=== PATIENT | female | born 2000 | race Caucasian/White ===

== ENCOUNTER 2020-08-14 18:59 | Emergency (ER) | payer OTHER, SELFPAY ==
--- NOTE | 2020-08-14 19:01 | ED_ITS ---
HPI - Female Genitourinary General Chief complaint: Urogenital-Female Stated complaint: Vaginal Bleeding Time Seen by Provider: 08/14/20 19:01 Source: patient Mode of arrival: Ambulatory Limitations: no limitations History of Present Illness HPI Narrative: 19-year-old female former smoker without significant medical history presents with a friend in the chief complaint of some painless vaginal spotting over the course of the afternoon. Her last normal period was July 05. She has taken at home tests which have been positive and she thinks she is about 6 weeks at this time. She is a and has yet to establish with an roll sheeting cutter. She is not dizzy nor weak or lightheaded. She denies any urinary complaints such as dysuria, frequency or urgency. She states the bleeding was bright red, minimal and noticed when wiping. Again, she denies any pain whatsoever. She has had no fever chills and she denies other symptoms. MD Complaint: vaginal bleeding Onset (ago): hour(s) Severity: mild Relieving factors: none Exacerbating factors: none Vaginal discharge: blood Patient : Yes Associated symptoms: denies other symptoms Related Data Allergies Allergy/AdvReac Type Severity Reaction Status Date / Time No Known Drug Allergies Allergy Verified 08/14/20 19:54 Review of Systems Constitutional Constitutional: Denies chills, Denies fatigue, Denies fever(s), Denies frequent falls, Denies lethargy and Denies weakness Eyes Eyes: Denies change in vision, Denies eye discharge, Denies irritation and Denies loss of vision ENT Ears, Nose, Mouth, and Throat: Denies change in voice, Denies dizziness, Denies neck pain, Denies sore throat and Denies throat swelling Cardiovascular Cardiovascular: Denies chest pain, Denies irregular heart rhythm, Denies lighthe adedness, Denies palpitations, Denies dyspnea, Denies dyspnea on exertion and Denies orthopnea Respiratory Respiratory: Denies cough, Denies dyspnea, Denies dyspnea on exertion and Denies wheezing Gastrointestinal Gastrointestinal: Denies abdominal pain, Denies change in bowel habits, Denies diarrhea, Denies nausea and Denies vomiting Genitourinary Genitourinary: Reports abnormal vaginal bleeding Musculoskeletal Musculoskeletal: Denies neck pain and Denies numbness Integumentary/Breasts Skin/Breast: Denies pruritus, Denies erythema, Denies rash and Denies wounds Neurologic Neurologic: Denies behavioral changes, Denies confusion, Denies dizziness, Denies frequent falls, Denies loss of vision, Denies numbness and Denies weakness Psychiatric Psychiatric: Denies anxiety, Denies behavioral changes, Denies confusion, Denies depression, Denies homicidal ideation and Denies suicidal ideation Endocrine Endocrine: Denies fatigue, Denies flushing and Denies palpitations Hematologic/Lymphatic Hematologic/Lymphatic: Denies easy bruising Allergic/Immunologic Allergic/Immunologic: Denies urticaria, Denies throat swelling and Denies wheezing Patient History housing: house Smoking Status: Former smoker alcohol intake frequency: 0-2 drinks per day Substance Use Type: does not use Exam Narrative Exam Narrative: GENERAL: 19[] year old patient appears stated age. Well- nourished, well-developed patient, in mild distress. HEAD: Atraumatic. Normocephalic. EYES: Pupils equal round and reactive. Extraocular motions intact. No scleral icterus. No injection or drainage. ENT: Nose without bleeding, purulent drainage. Throat without erythema, tonsillar hypertrophy or exudate. Airway patent. NECK: Trachea midline. Non tender CARDIOVASCULAR: Regular rate and rhythm without murmurs, gallops, or rubs. RESPIRATORY: Clear to auscultation. Breath sounds equal bilaterally. No wheezes, rales, or rhonchi. GASTROINTESTINAL: Abdomen soft, non-tender, nondistended. EXTREMITIES: No edema or joint tenderness. BACK: Nontender without deformity or crepitance. No flank tenderness. NEURO: AOx3. SKIN: No rash or erythema of visible areas Initial Vital Signs Initial Vital Signs: Vital Signs Temperature 99 F 08/14/20 19:14 Pulse Rate 100 H 08/14/20 19:14 Respiratory Rate 16 08/14/20 19:14 Blood Pressure 143/87 H 08/14/20 19:14 Pulse Oximetry 98 08/14/20 19:14 Course Orders Ordered: ED Orders 08/14/20 19:25 Basic Metabolic Panel Stat Complete Blood Count AUTO DIFF Stat HCG Quantitative /Beta subunit Stat 08/14/20 20:00 Urine Culture Stat Urine Microscopic Stat Reevaluation(s) Reevaluation #1: minimal change after reglan 1940 - nausea significantly improved 10 minutes after Haldol, still in pain. Vital Signs Vital signs: Vital Signs - 8 hr 08/14/20 19:14 08/14/20 20:23 Temperature 99 F Pulse Rate 100 H 84 Respiratory Rate 16 15 Blood Pressure 143/87 H 120/60 Pulse Oximetry 98 97 MDM - Female Genitourinary Lab Data Result diagrams: 08/14/20 19:25 08/14/20 19:25 Labs: Lab Results 08/14/20 08/14/20 08/14/20 Range/Units 19:25 19:25 20:00 WBC 9.2 (4.5-11.0) X10^3/uL RBC 4.55 (4.0-5.2) X10^6/uL Hgb 13.3 (12.0-16.0) g/dL Hct 39.8 (36-46) % MCV 87.5 (80-100) fL MCH 29.3 (26-34) PG MCHC 33.4 (30-36) % RDW 14.4 (11.6-14.8) % Plt Count 311 (150-400) X10^3/uL Neut % (Auto) 59.8 (50-75) % Lymph % (Auto) 28.5 (25-40) % [place] % (Auto) 9.8 (3-14) % Eos % (Auto) 1.3 L (2-4) % Baso % (Auto) 0.6 (0-2) % Neut # (Auto) 5500 (4712-5473) /uL Lymph # (Auto) 2600 (5767-9341) /uL [place] # (Auto) 900 (0-900) /uL Eos # (Auto) 100 (0-450) /uL Baso # (Auto) 100 (0-100) /uL Sodium 138 (137-145) mmol/L Potassium 3.7 (3.4-5.1) mmol/L Chloride 106 (98-107) mmol/L Carbon Dioxide 27 (22-32) mmol/L BUN 9 (7-17) mg/dL Creatinine 0.75 (0.52-1.04) mg/dL Estimated GFR > 60.0 (>60) mL/min BUN/Creatinine Ratio 12.0 (6-22) Glucose 102 H (70-100) mg/dL Calcium 9.3 (8.4-10.2) mg/dL HCG, Quant 369 mIU/mL Urine RBC 0-1/hpf (0-5/HPF) Urine WBC 10-30/hpf H (0-5/HPF) Ur Squamous Epith Cells 1-5 /hpf (0-5/HPF) Ur Transition Epith Cell 1-5/hpf (0-5/HPF) Urine Bacteria Moderate (10-30) H (None) Ur Culture Indicated? Specimen cultured Point of Care Testing Test Results Positive Urine Dip Bedside Urine Glucose Negative Bedside Urine Bilirubin - Negative Bedside Urine Ketone - Negative Urine Specific [place] 1.010 Bedside Urine Occult Blood +++ Bedside Urine pH 6.0 Bedside Urine Protein - Negative Bedside Urine Urobilinogen - Negative Bedside Urine Nitrite - Negative Bedside Urine Leukocytes +/- 15 Esterase Discharge Plan Departure Patient Disposition: Home Clinical Impression: Bleeding in early Instructions: DI for Vaginal Bleeding During Activity Restrictions/Additional Instructions: *You have been diagnosed with [painless 1st trimester bleeding] *What to do: *Take medications as directed *Your Beta HCG was 369. Please follow up with your OB doctor, call Saturday morning for an appointment. Tell them you were seen in the Emergency Department and we'd like you to be seen. Remember the HCG must be above 1500 before we would expect to see anything on an ultrasound. They will likely want to see you to repeat blood work in 5-7 days. *Return to ER if you should have any new, worsening or concerning symptoms, such as [bleeding through more than 1 pad per hour, increasing pain, fever greater than 101 F, or other bothersome symptoms] Referrals: Altagracia Greer MD [Primary Care Provider] -
[2020-08-14 19:14] VITALS: BP 143/87; PULSE 100; RESP 16; TEMP 37.2; O2SAT 98; BMI 28.3
[2020-08-14 19:36] LABS: Add Manual Diff / Slide Review NO; Basophils Absolute Auto 100 /uL (0-100); Basophils Percent Auto 0.6 % (0-2); Eosinophils Absolute Auto 100 /uL (0-450); Eosinophils Percent Auto 1.3 % (2-4); Hematocrit 39.8 % (36-46); Hemoglobin 13.3 g/dL (12.0-16.0); Lymphocytes Absolute Auto 2600 /uL (1100-4500); Lymphocytes Percent Auto 28.5 % (25-40); Mean Corpuscular HGB Conc 33.4 % (30-36); Mean Corpuscular Hemoglobin 29.3 PG (26-34); Mean Corpuscular Volume 87.5 fL (80-100); Monocytes Absolute Auto 900 /uL (0-900); Monocytes Percent Auto 9.8 % (3-14); Neutrophils Absolute Auto 5500 /uL (1500-7000); Neutrophils Percent Auto 59.8 % (50-75); Platelet Count 311 X10^3/uL (150-400); Red Blood Cell Count 4.55 X10^6/uL (4.0-5.2); Red Cell Distribution Width 14.4 % (11.6-14.8); White Blood Cell Count 9.2 X10^3/uL (4.5-11.0)
[2020-08-14 19:39] LABS: HEMOLYSIS < 15 (0-50)
[2020-08-14 19:45] LABS: Blood Urea Nitrogen 9 mg/dL (7-17); Calcium 9.3 mg/dL (8.4-10.2); Carbon Dioxide 27 mmol/L (22-32); Chloride 106 mmol/L (98-107); Estimated Glomerular Filt Rate > 60.0 mL/min (>60); Glucose 102 mg/dL (70-100); Potassium 3.7 mmol/L (3.4-5.1); Sodium 138 mmol/L (137-145)
[2020-08-14 20:06] LABS: HCG Quantitative /Beta subunit 369 mIU/mL
[2020-08-14 20:13] LABS: Bacteria Urine Moderate (10-30); Culture Indicated Urine Specimen Cultured; RBC Urine 0-1/HPF (0-5/HPF); Squamous Epithelial Cell Urine 1-5 /HPF (0-5/HPF); Transitional Epi Cells Urine 1-5/HPF (0-5/HPF); WBC Urine 10-30/HPF (0-5/HPF)
[2020-08-14 20:23] VITALS: BP 120/60; PULSE 84; RESP 15; O2SAT 97
== END 2020-08-14 20:24 | disposition home or self-care (01) ==
PROVIDERS: Emergency Provider Emergency Medicine; PCP Specialist
DX: O20.9 Hemorrhage in early pregnancy, unspecified (principal)
CPT/HCPCS: 36415; 80048; 81003; 81015; 81025; 84702; 85025; 87086; 99283

== ENCOUNTER 2022-04-30 16:21 | Emergency (ER) | payer OTHER, SELFPAY ==
[2022-04-30 16:53] VITALS: BP 152/94; PULSE 83; RESP 18; TEMP 36.4; O2SAT 100; BMI 25.4
--- NOTE | 2022-04-30 17:21 | ED.FEMALEGU ---
HPI - Female Genitourinary <JOANN Marin - Last Filed: 04/30/22 18:54> General Chief complaint: Vaginal Bleeding Stated complaint: Vaginal bleed 3 weeks Time Seen by Provider: 04/30/22 17:06 Source: patient Mode of arrival: Ambulatory History of Present Illness HPI Narrative: This is a 21-year-old female presents to the emergency department endorsing vaginal bleeding and spotting for the last 3 weeks since she took plan B following unprotected sex with her on 04/13/2022. She states that she had just finished her menses, she had vaginal bleeding that started just after finishing plan B. States this has never occurred to her before, she is not currently on any contraception. States that she was on implanted Nexplanon but is no longer. She denies any urinary changes but is concern for vaginal itching and abnormal vaginal discharge. She denies any fever, chills, urinary frequency or urgency, denies any dysuria, flank pain, nausea vomiting. She denies any recent , states that she had a miscarriage last year. She is in the [place], has not seen anybody for this problem yet. Related Data Allergies Allergy/AdvReac Type Severity Reaction Status Date / Time No Known Drug Allergies Allergy Verified 08/14/20 19:54 Review of Systems <JOANN Marin - Last Filed: 04/30/22 18:54> Review of Systems Narrative: Review of systems is negative for acute abnormalities unless otherwise noted in HPI Patient History <JOANN Marin - Last Filed: 04/30/22 18:54> tobacco type: vaping alcohol intake frequency: 0-2 drinks per day Substance Use Type: does not use Exam <JOANN Marin - Last Filed: 04/30/22 18:54> Narrative Exam Narrative: Reviewed vitals signs and nursing notes. General: cooperative, comfortable, in no acute distress, well groomed HEENT: symmetrical facial expressions, moist mucous membranes Cardiovascular: regular rate and rhythm, no peripheral edema, warm extremities Respiratory: normal effort, able to speak in complete sentences, without wheezing, stridor, or abnormal breath sounds. No retractions or tachypnea. GI: abdomen soft, nontender to palpation, nondistended, without masses, rebound tenderness or exquisite tenderness with exam. MSK: moves all extremities, neurovascularly intact, no weakness, normal tone Experimental [employer] Fabricator: Vaginal exam without adnexal, brown/red vaginal discharge, is not copious, mild tenderness with swabs, patient tolerated well, no rash, no external erythema or evidence of infection. Skin: brisk capillary refill, without pallor or erythema Neuro: normal speech and cognition, A&O x3, ambulatory, clear speech Psych: mental status is grossly normal, congruent mood, normal affect, pleasant and cooperative Initial Vital Signs Initial Vital Signs: Vital Signs Temperature 97.6 F 04/30/22 16:53 Pulse Rate 83 04/30/22 16:53 Respiratory Rate 18 04/30/22 16:53 Blood Pressure 152/94 H 04/30/22 16:53 Pulse Oximetry 100 04/30/22 16:53 Oxygen Delivery Method 04/30/22 16:53 <Lindsey Roche DO - Last Filed: 05/06/22 04:47> Initial Vital Signs Initial Vital Signs: Vital Signs Temperature 97.6 F 04/30/22 16:53 Pulse Rate 83 04/30/22 16:53 Respiratory Rate 18 04/30/22 16:53 Blood Pressure 152/94 H 04/30/22 16:53 Pulse Oximetry 100 04/30/22 16:53 Oxygen Delivery Method 04/30/22 16:53 Course <JOANN Marin - Last Filed: 04/30/22 18:54> Orders Ordered: Discontinued Medications Ketorolac Tromethamine (Ketorolac 10 Mg Tablet) 10 mg PO NOW ONE Stop: 04/30/22 17:27 Last Admin: 04/30/22 17:43 Dose: 10 mg Documented By: LAN Vital Signs Vital signs: Vital Signs - 8 hr 04/30/22 16:53 04/30/22 17:27 Temperature 97.6 F Pulse Rate 83 Respiratory Rate 18 Blood Pressure 152/94 H 124/85 Pulse Oximetry 100 Oxygen Delivery Method Room Air <Lindsey Roche DO - Last Filed: 05/06/22 04:47> Orders Ordered: Discontinued Medications Ketorolac Tromethamine (Ketorolac 10 Mg Tablet) 10 mg PO NOW ONE Stop: 04/30/22 17:27 Last Admin: 04/30/22 17:43 Dose: 10 mg Documented By: LAN Vital Signs Vital signs: Vital Signs - 8 hr 04/30/22 16:53 04/30/22 17:27 Temperature 97.6 F Pulse Rate 83 Respiratory Rate 18 Blood Pressure 152/94 H 124/85 Pulse Oximetry 100 Oxygen Delivery Method Room Air MDM - Female Genitourinary <JOANN Marin - Last Filed: 04/30/22 18:54> Lab Data Lab results narrative: [facility] CLIA ID [id number] [address] [place] [address] RUN DATE: 04/30/22 Specimen Inquiry PAGE 1 RUN TIME: 1750 Name: Mary Pena Age/Sex: 21/F Attend Dr: Olivia Rush Unit#: [id number] : 2000Location: ED Re04/30/22 Disch: Status: REG ER SPEC #: [id number] LISA: 04/30/22 STATUS: COMP REQ #: [id number] SPDESC: RECD: 04/30/[address]: Olivia Rush SOURCE: Vaginal ENTR: 04/30/[address]: Altagracia Greer MD FAX TO: ORDERED: Wet Prep Procedure Result Verified Site Wet Prep Tric BV Adelina Final 04/30/22-1733 White blood cells No WBC seen Clue cells: None seen Yeast: None seen Trichomonas: None seen Labs: Lab Results 04/30/22 04/30/22 Range/Units 17:04 17:04 Urine Color Yellow Urine Appearance Clear Urine pH 7.5 (4.5-8.0) Ur Specific [place] 1.010 (1.000-1.035) Urine Protein Negative (Negative) Urine Glucose (UA) Negative (Negative) g/dL Urine Ketones Negative (NEGATIVE) Urine Occult Blood 2+ H (Negative) Urine Nitrate Negative (Negative) Urine Bilirubin Negative (NEGATIVE) Urine Urobilinogen 0.2 (0.2) E.U./dL Ur Leukocyte Esterase Negative (NEGATIVE) Urine RBC None seen (0-5/HPF) Urine WBC 0-1/hpf (0-5/HPF) Urine Bacteria None seen (None) Ur Culture Indicated? Cult not indicated Ur Chlamydia DNA (PCR) Not detected N gonorrhoeae DNA (PCR) Not detected Point of Care Testing Test Results Negative MDM Narrative Medical decision making narrative: This is a pleasant 21-year-old female presents to the emergency department complaining of ongoing vaginal bleeding which is brown/red in color following plan B on 04/13/2022. She states that she started with vaginal bleeding just after the plan B was completed, this comes just after her menstrual cycle naturally ended. She states that she had unprotected sex with her , she is not currently on contraception and that is the reason for the plan B. She denies any pelvic pain, fever, pruritus, fever, or other abnormality. Discussed how the hormone fluctuation can change a naturally occurring menstrual cycle especially if you have regular periods and this is never happened to before. She did not want an oral control pill as she states it has caused weight gain in the past, she was agreeable to NSAID use to see if this helps decrease her bleeding. I gave her a prescription of ketorolac to use p.o. for the next few days to see if this helps. I encouraged her to make an appointment with Dr. David or other OBGYN to discuss her family planning and contraception plan. She reports interest in a IUD and I encouraged her to follow-up with them for this in the future. If she has any worsening symptoms like a fever, nausea vomiting, pain I gave her strict return precautions come back to the emergency department to work this up. Completed a wet prep to assess for bacterial vaginitis, yeast or other cells and it was negative for WBCs, clue cells yeast and Trichomonas. Her urine was negative for on POC, her UA is negative for nitrates, leukocyte esterase, urine RBCs, WBCs or bacteria. Patient is appropriate and amenable to discharge home. Vital signs are stable on repeat examination is unremarkable. Patient has been informed of results. Patient has been given strict return to ER precautions for any new or worsening symptoms. Patient understands to follow up closely with outpatient providers as instructed. Patient understands plan and agrees to discharge home. All questions and concerns answered at this time. <Lindsey Roche, DO - Last Filed: 05/06/22 04:47> Lab Data Labs: Lab Results 04/30/22 04/30/22 Range/Units 17:04 17:04 Urine Color Yellow Urine Appearance Clear Urine pH 7.5 (4.5-8.0) Ur Specific [place] 1.010 (1.000-1.035) Urine Protein Negative (Negative) Urine Glucose (UA) Negative (Negative) g/dL Urine Ketones Negative (NEGATIVE) Urine Occult Blood 2+ H (Negative) Urine Nitrate Negative (Negative) Urine Bilirubin Negative (NEGATIVE) Urine Urobilinogen 0.2 (0.2) E.U./dL Ur Leukocyte Esterase Negative (NEGATIVE) Urine RBC None seen (0-5/HPF) Urine WBC 0-1/hpf (0-5/HPF) Urine Bacteria None seen (None) Ur Culture Indicated? Cult not indicated Ur Chlamydia DNA (PCR) Not detected N gonorrhoeae DNA (PCR) Not detected Point of Care Testing Test Results Negative Discharge Plan Departure Patient Disposition: Home Clinical Impression: Menometrorrhagia Instructions: DI for Menorrhagia Activity Restrictions/Additional Instructions: Please schedule an appointment with Dr. David or other OBGYN for evaluation and/or for follow-up regarding your abnormal vaginal bleeding related to your menstrual cycle, and for family planning/contraception. I have sent Toradol to the [facility], you may use this or ibuprofen every 8 hours to help reduce bleeding and cramping. Please stay hydrated, eat food with these medications to prevent ulcer. Please schedule an appointment at the OBGYN office for follow-up and contraception. Please give yourself 6 weeks to hopefully return to a normal cycle. If you have lightheadedness, worsening pain, fever or any other symptoms, please come back in to re-evaluate the situation. Thank you for your patients today. *What to do: *Please continue to take your regular medications as directed. [x ] New medication prescriptions sent to your pharmacy: [[facility]] [ ] New medication written as a paper prescription [ ] No new medications given *Please follow up with your primary care provider in 2-3 days, call for an appointment. Let them know you were seen in the Emergency Department and that we asked that you be seen for follow-up. We will electronically transmit a record of today's note if your PCP is in our system *If you do not have a primary care provider please contact [phone] to establish care with one of the [facility] primary care providers. *Return to Emergency Department if you should have any new, worsening, or concerning symptoms, such as [fever greater than 101F, chills, worsening pain, persistent vomiting or other bothersome symptoms]. Referrals: Altagracia Greer MD [Primary Care Provider] - Cally David MD [Physician] - Visit Report Forms: Patient Portal/API <Lindsey Roche DO - Last Filed: 05/06/22 04:47> Cosign ED Attending Cosignature Attestation: I was immediately available in the department for consultation. Documentation has been reviewed.
[2022-04-30 17:27] VITALS: BP 124/85
--- NOTE | 2022-04-30 17:27 | PC.NURSE ---
Pt states on 04/13/2022 she had taken a Plan B. On 04/20/2022 she had started bleeding. Per pt report, it wasn't enough to fill a pad, but it soaked my underwear. Then it stopped. Pt reports the same kind of bleeding started again today.
[2022-04-30] MEDS: KETOROLAC 10 MG TABLET PO (17:43)
[2022-04-30 18:00] LABS: Appearance Urine UA CLEAR; Bilirubin Urine UA NEGATIVE (NEGATIVE); Color Urine UA YELLOW; Glucose Urine UA NEGATIVE (Negative); Ketones Urine UA NEGATIVE (NEGATIVE); Leukocyte Esterase Urine UA NEGATIVE (NEGATIVE); Nitrite Urine UA NEGATIVE (Negative); Occult Blood Urine UA 2+ (Negative); Protein Urine UA NEGATIVE (Negative); Urobilinogen Urine UA 0.2 E.U./dL (0.2)
[2022-04-30 18:12] LABS: pH Urine UA 7.5 (4.5-8.0)
[2022-04-30 18:20] LABS: Bacteria Urine None Seen; Culture Indicated Urine Cult Not Indicated; RBC Urine None Seen (0-5/HPF); WBC Urine 0-1/HPF (0-5/HPF)
[2022-04-30 18:54] LABS: Urine N gonorrhoeae NOT DETECTED
[2022-04-30 18:56] LABS: Urine Chlamydia NOT DETECTED
== END 2022-04-30 18:10 | disposition home or self-care (01) ==
PROVIDERS: Emergency Provider Nurse Practitioner Critical Care Medicine; PCP Specialist
DX: N92.1 Excessive and frequent menstruation with irregular cycle (principal)
CPT/HCPCS: 81001; 81025; 87210; 87491; 87591; 99283